=== PATIENT | female | born 1965 ===

== ENCOUNTER → 2018-05-01 21:31 | Outpatient (REF) | payer OTHER, SELFPAY ==
[2018-05-01 23:06] LABS: Add Manual Diff / Slide Review NO; Basophils Percent Auto 1.1 % (0-2); Eosinophils Percent Auto 2.9 % (2-4); Hematocrit 39.4 % (36-46); Hemoglobin 13.5 g/dL (12.0-16.0); Lymphocytes Percent Auto 35.3 % (25-40); Mean Corpuscular HGB Conc 34.2 % (30-36); Mean Corpuscular Hemoglobin 32.4 PG (26-34); Mean Corpuscular Volume 94.7 fL (80-100); Monocytes Percent Auto 7.8 % (3-14); Neutrophils Absolute Auto 2500 /uL (1500-7000); Neutrophils Percent Auto 52.9 % (50-75); Platelet Count 215 X10^3/uL (150-400); Red Blood Cell Count 4.16 X10^6/uL (4.0-5.2); Red Cell Distribution Width 12.3 % (11.6-14.8); White Blood Cell Count 4.7 X10^3/uL (4.5-11.0)
[2018-05-01 23:11] LABS: Alanine Aminotransferase 35 IU/L (9-52); Albumin 4.3 g/dL (3.5-5.0); Albumin Globulin Ratio 1.5 (1.0-2.8); Alkaline Phosphatase 63 U/L (38-126); Aspartate Aminotransferase 32 IU/L (14-36); Bilirubin Total 0.7 mg/dL (0.2-1.3); Blood Urea Nitrogen 16 mg/dL (7-17); Calcium 9.8 mg/dL (8.4-10.2); Carbon Dioxide 30 mmol/L (22-32); Chloride 102 mmol/L (98-107); Cholesterol 161 mg/dL (140-199); Estimated Glomerular Filt Rate > 60.0 mL/min (>60); Globulin 2.9 g/dL (1.7-4.1); Glucose 82 mg/dL (70-100); HDL Cholesterol 85 mg/dL (40-60); HEMOLYSIS < 15 (0-50); LDL Cholesterol Calculated 65 mg/dL (<100); Potassium 4.2 mmol/L (3.4-5.1); Sodium 142 mmol/L (137-145); Total Protein 7.2 g/dL (6.3-8.2); Triglycerides 57 mg/dL (35-150)
[2018-05-01 23:36] LABS: Appearance Urine UA CLEAR; Bilirubin Urine UA NEGATIVE (NEGATIVE); Color Urine UA YELLOW; Glucose Urine UA NEGATIVE (Normal); Ketones Urine UA NEGATIVE (NEGATIVE); Leukocyte Esterase Urine UA NEGATIVE (NEGATIVE); Nitrite Urine UA NEGATIVE (Negative); Occult Blood Urine UA 1+ (Negative); Protein Urine UA NEGATIVE (Negative); Urobilinogen Urine UA 0.2 E.U./dL (0.2)
[2018-05-01 23:46] LABS: Ferritin 29.2 ng/mL (11.1-264)
[2018-05-01 23:54] LABS: RBC Urine 0-1/HPF (0-5/HPF); Squamous Epithelial Cell Urine 5-10 /HPF; WBC Urine 0-1/HPF (0-5/HPF)
[2018-05-01 23:55] LABS: Amorphous Sediment Urine 1+; Bacteria Urine Few (2-10); Culture Indicated Urine Cult Not Indicated; Mucus Urine 1+ (Negative)
[2018-05-02 01:53] LABS: Free T4, Direct Thyroxine 1.87 ng/dL (0.78-2.19)
[2018-05-02 02:07] LABS: Thyroid Stimulating Hormone 0.91 uIU/mL (0.47-4.68)
[2018-05-04 16:07] LABS: Albumin 4.2 g/dL (3.6-5.1); Sex Hormone Binding Globulin 43 nmol/L (17-124); Testosterone, Bioavailable 21.1 ng/dL (0.5-8.5); Testosterone, Total 112 ng/dL (2-45); Testosterone,Free 10.9 pg/mL (0.2-5.0)
[2018-05-05 17:57] LABS: Progesterone < 0.5 ng/mL
[2018-05-06 16:49] LABS: Estrogen 109.2 pg/mL
== END ==
LOC: LAB 21:31
PROVIDERS: Visit Provider Naturopath
DX: Z00.01 Encounter for general adult medical examination with abnormal findings (principal); Z13.89 Encounter for screening for other disorder; Z95.1 Presence of aortocoronary bypass graft; R68.82 Decreased libido; S13.4XXA Sprain of ligaments of cervical spine, initial encounter; S33.5XXA Sprain of ligaments of lumbar spine, initial encounter; R63.5 Abnormal weight gain; E06.3 Autoimmune thyroiditis; J45.20 Mild intermittent asthma, uncomplicated
CPT/HCPCS: 36415; 80053; 80061; 81001; 82040; 82672; 82728; 84144; 84270; 84402; 84403; 84439; 84443; 85025